=== PATIENT | female | born 1985 | race African-American/Black ===

== ENCOUNTER 2016-09-21 16:31 | Emergency (ER) | payer MEDICAID ==
[~2016-09-21] VITALS: Ht 162.6 cm; Wt 74.8 kg
[~2016-09-21 16:31] MED LIST: BACTRIM DS TAB1 EAC1 ORAL; LITHIUM CARBON300 MG ORAL
[2016-09-21 16:46] VITALS: BP 114/74
[2016-09-21] MEDS ORDERED: BENADRYL25 MG ORAL (18:37)
[2016-09-21] MEDS ORDERED: PROMETHAZINE-D118 ML ORAL (18:37)
[2016-09-21] MEDS ORDERED: PROAIR HFA8.5 GM INH (18:37)
[2016-09-21 18:41] VITALS: BP 121/76
[2016-09-21 18:42] VITALS: BP 121/76
--- NOTE | 2016-09-21 20:59 | Emergency Room Report ---
History of Present Illness General Chief Complaint: Upper Respiratory Illness Source: Patient Present Illness HPI The patient is a 30-year-old female who denies any medical history presenting for 3 weeks of productive cough. The patient states she expectorates a white sputum. The patient denies any sick contacts or recent travel. Patient denies other symptoms including nausea, vomiting, fever, chills, shortness of breath, wheezing, chest pain, headache, myalgia, rash Allergies: Coded Allergies: No Known Allergies (Unverified , 09/11/14) Patient History Past Medical History: see triage record Pertinent Family History: none Last Menstrual Period: 08/27/2016 Now: No Reviewed Nursing Documentation: PMH: Agreed, PSxH: Agreed Nursing Documentation-PMH Past Medical History: No History, Except For History Of Psychiatric Problem: Yes - Bipolar, Anxiety, psychosis, depression Review of Systems All Other Systems: negative except mentioned in HPI Physical Exam Vital Signs Date Time Temp Pulse Resp B/P Pulse Ox O2 Delivery O2 Flow Rate FiO2 09/21/16 16:46 98.4 88 14 114/74 99 Room Air Sp02 EP Interpretation: reviewed, normal General Appearance: no apparent distress, alert, GCS 15, non-toxic Head: normocephalic, atraumatic Eyes: bilateral eye PERRL, bilateral eye normal inspection ENT: hearing grossly normal, normal pharynx, no angioedema, normal voice, uvula midline Neck: full range of motion, supple/symm/no masses Respiratory: chest non-tender, normal breath sounds, speaking full sentences, wheezing - minimal diffuse Cardiovascular #1: regular rate, rhythm, no edema Musculoskeletal: back normal, gait/station normal, normal range of motion, non- tender Neurologic: alert, oriented x3, responsive, motor strength/tone normal, sensory intact, speech normal Psychiatric: judgement/insight normal, memory normal, mood/affect normal, no suicidal/homicidal ideation Skin: normal color, no rash, warm/dry, well hydrated Lymphatic: no adenopathy Medical Decision Making PA Attestation Dr. Sarabia is my supervising physician. Patient management was discussed with my supervising physician Diagnostic Impression: Primary Impression: Bronchitis ER Course The patient is a 30-year-old female who denies any medical history presenting for 3 weeks of productive cough. Differential diagnosis include but not limited to pharyngitis, sinusitis, AOM, bronchitis, PNA PE: No apparent distress. No TTP over maxillary or frontal sinuses. Lungs: minimal diffuse wheezing. No accessory muscle use. Heart: RRR, no abnormal heart sounds Ears: external auditory canal clear. Non erythematous. Bilat TM intact. Cone of light present bilat. No bulging of TM. No serous fluid seen. no nasal D/C no cervical lymphad No tonsillar exudate. Uvula midline.Oropharynx non erythematous Chest x-ray is unremarkable The patient is discharged home with a prescription for cough medication, albuterol, and Benadryl. ER precautions are given Chest X-Ray Diagnostic Results EP Interpretation: Yes Findings: no consolidation, no effusion, no pneumothorax Number of Views: 1 PA Scribe Text I am acting as scribe for my supervising physician. My supervising physician's interpretation of the chest xrays are there is no consolidation, no effusion, no acute cardiopulmonary disease, no pneumothorax Last Vital Signs Date Time Temp Pulse Resp B/P Pulse Ox O2 Delivery O2 Flow Rate FiO2 09/21/16 18:42 98.1 80 14 121/76 100 Room Air Status: improved Disposition: HOME, SELF-CARE Condition: Improved Scripts Diphenhydramine Hcl* (BENADRYL*) 25 Mg Capsule 25 MG ORAL BEDTIME Y for For Cough, #14 CAP Prov: TERZIAN,RHIANNON P.A. 09/21/16 Albuterol Sulfate* (PROAIR HFA*) 8.5 Gm Hfa.aer.ad 2 PUFFS INH Q6H, #8.5 GM 0 Refills Prov: TERZIAN,RHIANNON P.A. 09/21/16 D-Methorphan Hb/Prometh Hcl* (PROMETHAZINE-DM SYRUP*) 118 Ml Syrup 5 ML ORAL Q6H Y for For Cough, #118 ML 0 Refills Prov: TERZIAN,RHIANNON P.A. 09/21/16 Patient Instructions: Cough, Adult Additional Instructions: I discussed my findings with the patient. All questions and concerns have been answered. Treatment and medication compliance have been addressed. I advised the patient that they need to follow up with PMD in 3-5 days. Return to ED if pain remains or worsens, cough worsens or remains, you notice blood in your sputum, you notice wheezing, you experience a fever, or if needed for any reason. Patient verbalized understanding of discharge instructions. RHIANNON PINO Sep 21, 2016 20:59
--- NOTE | 2016-09-22 10:19 | Diagnostic Imaging Report ---
Indication: COUGH Technique: One view of the chest Comparison: none Findings: Lungs and pleural spaces are clear. Heart size is normal. Impression: No acute process
== END 2016-09-21 18:42 | disposition home or self-care (01) ==
LOC: EMR 18:04
DX: J40 Bronchitis, not specified as acute or chronic (principal); F31.9 Bipolar disorder, unspecified; F41.9 Anxiety disorder, unspecified
CPT/HCPCS: 71010; 99284

== ENCOUNTER 2017-01-25 11:46 | Emergency (ER) | payer MEDICAID ==
[~2017-01-25] VITALS: Ht 162.6 cm; Wt 73.0 kg
[~2017-01-25 11:46] MED LIST changes: +BENADRYL25 MG ORAL; +PROAIR HFA8.5 GM INH; +PROMETHAZINE-D118 ML ORAL
[2017-01-25] MEDS ORDERED: LAMICTAL150 MG ORAL (12:03)
[2017-01-25] MEDS ORDERED: CEPHALEXIN500 MG ORAL (12:03)
[2017-01-25] MEDS ORDERED: WELLBUTRIN XL150 MG ORAL (12:03)
[2017-01-25] MEDS ORDERED: ATIVAN1 MG ORAL (12:04)
[2017-01-25 12:07] VITALS: BP 119/85
[2017-01-25 12:15] LABS: APPEARANCE,URINE CLEAR; KETONES,URINE NEGATIVE (NEGATIVE); LEUKOCYTE ESTERASE ,URINE 1+ (NEGATIVE); NITRITE,URINE NEGATIVE (NEGATIVE); PH,URINE 7 (4.5-8.0); PROTEIN,URINE NEGATIVE (NEGATIVE); UROBILINOGEN,URINE NORMAL MG/DL (0.0-1.0)
[2017-01-25 12:28] LABS: BACTERIA,URINE FEW /HPF; RBC,URINE 0-2 /HPF (0 - 2); SQUAMOUS EPITHELIAL CELL,UR FEW /LPF (NONE/OCC)
[2017-01-25] MEDS ORDERED: Phenazopyridine 200mg tab ORAL ONE (12:30)
[2017-01-25] MEDS ORDERED: PHENAZOPYRIDIN200 MG ORAL (13:13)
--- NOTE | 2017-01-25 13:13 | Emergency Room Report ---
History of Present Illness General Chief Complaint: Female Urogenital Problems Source: Patient Present Illness HPI 31-year-old female presents to the emergency department complaining of 6/10 in severity dysuria in addition to lower abdominal burning sensation times several months. Patient states she has had recurrent UTIs and has tried multiple rounds of oral antibiotics with no relief of her symptoms. She denies hematuria. Patient denies ever being prescribed Pyridium. She denies fevers, chills, low back pain, abdominal tenderness. She denies history of STI is she denies and states that she has been abstinent for over 2 years. She denies lesions, tender swollen palpable lymph nodes or rashes. Denies CP, Palpitations, LOC, AMS, dizziness, Changes in Vision, Sensation, paresthesias, or a sudden severe headache. Allergies: Coded Allergies: LATEX, NATURAL RUBBER (Verified Allergy, Unknown, 01/25/17) Patient History Past Medical History: see triage record Past Surgical History: none Pertinent Family History: none Last Menstrual Period: 01/06/17 Now: No Immunizations: UTD Reviewed Nursing Documentation: PMH: Agreed, PSxH: Agreed Nursing Documentation-PMH History Of Psychiatric Problem: Yes - Bipolar; Mood disorder; Depression; Anxiety; Paranoia Hx Neurological Problems: Yes - Meningioma Review of Systems All Other Systems: negative except mentioned in HPI Physical Exam Vital Signs Date Time Temp Pulse Resp B/P Pulse Ox O2 Delivery O2 Flow Rate FiO2 01/25/17 11:56 98.2 99 16 119/85 98 Room Air Sp02 EP Interpretation: reviewed, normal General Appearance: no apparent distress, alert, GCS 15, non-toxic Head: normocephalic, atraumatic Eyes: bilateral eye PERRL, bilateral eye normal inspection ENT: hearing grossly normal, normal pharynx, no angioedema, normal voice Neck: full range of motion, supple/symm/no masses Respiratory: lungs clear, normal breath sounds, speaking full sentences Cardiovascular #1: regular rate, rhythm, no edema Gastrointestinal: normal bowel sounds, non tender, soft, no guarding, no rebound, other - Negative [place] signs, Negative MacBurney's sign, Negative Rosvigns Sign, Negative Psoas, No Peritoneal signs. Rectal: deferred Genitourinary: normal inspection, no CVA tenderness, bladder normal - mild midline ttp, ext genitalia/vag normal, no vertebral tenderness, other - no LAD Musculoskeletal: back normal, gait/station normal, normal range of motion, non- tender Neurologic: alert, oriented x3, responsive, motor strength/tone normal, sensory intact, speech normal Psychiatric: judgement/insight normal, memory normal, mood/affect normal Skin: normal color, no rash, warm/dry, well hydrated Lymphatic: no adenopathy Medical Decision Making PA Attestation Dr. mason is my supervising Physician whom patient management has been discussed with. Diagnostic Impression: Primary Impression: Dysuria ER Course 31-year-old female presents to the emergency department complaining of 6/10 in severity dysuria in addition to lower abdominal burning sensation times several months. Patient states she has had recurrent UTIs and has tried multiple rounds of oral antibiotics with no relief of her symptoms. She denies hematuria. Patient denies ever being prescribed Pyridium. She denies fevers, chills, low back pain, abdominal tenderness. She denies history of STI is she denies and states that she has been abstinent for over 2 years. She denies lesions, tender swollen palpable lymph nodes or rashes. Denies CP, Palpitations, LOC, AMS, dizziness, Changes in Vision, Sensation, paresthesias, or a sudden severe headache. Ddx considered but are not limited to UTi , Pyelo, STI, Stone, Cystitis Vital signs: are WNL, pt. is afebrile H&PE are most consistent with UTI symptoms, possible cystitis - abdominal exam was benign no evidence to suggest acute abdominal process at this time. ORDERS: - UA: No evidence of infection - Urine Hcg: negative ED INTERVENTIONS: Pyridium PO d/w pt. the results of her urine testing, d/w pt. that she should be evaluated by a urologist if her symptoms continue. d/w pt. to return to ED with worsening or new symptoms. DISCHARGE: At this time pt. is stable for d/c to home. Will provide printed patient care instructions, and any necessary prescriptions. Care plan and follow up instructions have been discussed with the patient prior to discharge. Labs Test 01/25/17 11:53 Urine Color Pale yellow Urine Appearance Clear Urine pH 7 (4.5-8.0) Urine Specific [place] 1.005 (1.005-1.035) Urine Protein Negative (NEGATIVE) Urine Glucose (UA) Negative (NEGATIVE) Urine Ketones Negative (NEGATIVE) Urine Occult Blood Negative (NEGATIVE) Urine Nitrite Negative (NEGATIVE) Urine Bilirubin Negative (NEGATIVE) Urine Urobilinogen Normal MG/DL (0.0-1.0) Urine Leukocyte Esterase 1+ (NEGATIVE) Urine RBC 0-2 /HPF (0 - 2) Urine WBC 2-4 /HPF (0 - 2) Urine Squamous Epithelial Cells Few /LPF (NONE/OCC) Urine Bacteria Few /HPF (NONE) Urine HCG, Qualitative Negative Last Vital Signs Date Time Temp Pulse Resp B/P Pulse Ox O2 Delivery O2 Flow Rate FiO2 01/25/17 12:07 98.2 99 16 119/85 98 Room Air Disposition: HOME, SELF-CARE Condition: Stable Scripts Phenazopyridine Hcl* (PYRIDIUM*) 200 Mg Tablet 200 MG ORAL THREE TIMES A DAY for 3 Days, #9 TAB 0 Refills Prov: Iveth Herrera 01/25/17 Referrals: [facility]ERR[facility] (PCP) Patient Instructions: Dysuria, Interstitial Cystitis Additional Instructions: Take medications as directed. Follow up with a Primary Care Provider in 3-5 days, even if your symptoms have resolved. May require UROLOGY evaluation if symptoms persist. Return sooner to ED if new symptoms occur, or current symptoms become worse. Pyridium will cause your urine to change color (Red/[place]), this is a normal side effect of the medication. - Please note that this Emergency Department Report was dictated using [employer] technology software, occasionally this can lead to erroneous entry secondary to interpretation by the dictation equipment. Iveth Herrera Jan 25, 2017 13:13
[2017-01-25 13:25] VITALS: BP 119/85
== END 2017-01-25 13:26 | disposition home or self-care (01) ==
LOC: EMR 12:11
DX: R30.0 Dysuria (principal); Z91.040 Latex allergy status; F31.9 Bipolar disorder, unspecified; F41.9 Anxiety disorder, unspecified; D32.9 Benign neoplasm of meninges, unspecified
CPT/HCPCS: 81003; 81025; 99283